=== PATIENT | female | born 1940 | race Caucasian/White ===

== ENCOUNTER 2017-05-01 21:08 | Emergency (ER) | payer OTHER ==
[~2017-05-01] VITALS: Ht 162.6 cm; Wt 60.2 kg
[2017-05-01] MEDS ORDERED: CARV-39 PO (21:34)
[2017-05-01] MEDS ORDERED: LISI-170 PO (21:34)
[2017-05-01] MEDS ORDERED: SODIUM CHLORIDE 0.9% 1,000ML IVBOLUS ONE (22:00)
[2017-05-01] MEDS ORDERED: SODIUM CHLORIDE FLUSH 10ML SYR IVF ONE (22:00)
[2017-05-01 22:21] LABS: BLOOD UREA NITROGEN 16 mg/dL (7-18)
[2017-05-01] MEDS ORDERED: ENALAPRILAT 1.25 MG/ML, 2ML IV ONE (22:30)
[2017-05-01] MEDS ORDERED: ENALAPRILAT 1.25 MG/ML, 2ML ONE (22:33)
[2017-05-01 22:46] VITALS: BP 180/72
== END 2017-05-01 23:20 | disposition home or self-care (01) ==
LOC: ED 23:14
DX: I10 Essential (primary) hypertension (principal); E11.9 Type 2 diabetes mellitus without complications
CPT/HCPCS: 36415; 80048; 82040; 93005; 96361; 96374; 99285; J7030